=== PATIENT | female | born 1985 | race Caucasian/White ===

== ENCOUNTER → 2020-05-30 09:56 | Outpatient (BNVA) | payer MEDICAID, SELFPAY | PROVIDERS: PCP Family Medicine; Referring Provider Family Medicine; Visit Provider Nurse Practitioner | DX: I99.8 Other disorder of circulatory system (principal); R56.9 Unspecified convulsions; R29.2 Abnormal reflex; R00.2 Palpitations; F44.9 Dissociative and conversion disorder, unspecified; M54.2 Cervicalgia; R51.9 Headache, unspecified; Z13.29 Encounter for screening for other suspected endocrine disorder; Z87.891 Personal history of nicotine dependence | CPT/HCPCS: 99205 ==

== ENCOUNTER → 2020-06-08 09:58 | Outpatient (BNVA) | payer MEDICAID, SELFPAY | PROVIDERS: PCP Family Medicine; Referring Provider Nurse Practitioner; Visit Provider Specialist | DX: R56.9 Unspecified convulsions (principal); F44.9 Dissociative and conversion disorder, unspecified; Z87.891 Personal history of nicotine dependence | CPT/HCPCS: 95816 ==

== ENCOUNTER 2020-06-08 12:01 | Outpatient (CLI) | payer MEDICAID, SELFPAY ==
[2020-06-08 12:52] LABS: Estmated Average Glucose 103; Hemoglobin A1C 5.2 % (4.0-6.0)
[2020-06-08 13:02] LABS: Chol HDL Ratio 5.16 mg/dL (0.0-4.40); Cholesterol 191 mg/dL (0-200); HDL Cholesterol 37 mg/dL (60-100); LDL Cholesterol Calculated 140 mg/dL (50-129); LDL HDL Ratio 3.78 RATIO (0.00-3.22); Triglycerides 69 mg/dL (0-150)
== END 2020-06-08 12:02 | disposition home or self-care (01) ==
LOC: LAB 12:06
PROVIDERS: PCP Family Medicine; Visit Provider Nurse Practitioner
DX: I99.8 Other disorder of circulatory system (principal); Z13.29 Encounter for screening for other suspected endocrine disorder
CPT/HCPCS: 36415; 80061; 83036

== ENCOUNTER 2020-06-10 09:42 | Outpatient (CLI) | payer MEDICAID, SELFPAY ==
--- NOTE | 2020-06-10 09:30 | MR_ITS ---
WS: [id number] MRI CERVICAL SPINE NONCONTRAST TECHNIQUE: Sagittal T1, T2 and STIR imaging. Axial T2, gradient, and fiesta imaging. CLINICAL INFORMATION: M54.2 - Cervicalgia COMPARISON: None. FINDINGS: Straightening of the normal cervical lordosis. Cord signal is normal. No high-grade central canal cathie nosis. Small broad-based central protrusion C5-C6. C2-C3: Normal. C3-C4: Mild left facet arthropathy. Mild left bony foraminal narrowing. C4-C5: Mild facet arthropathy. Mild bilateral bony foraminal narrowing. Spinal canal is patent. C5-C6: Small broad-based central disc protrusion with tiny annular fissure. Mild central canal stenos is. Mild left greater than right bony foraminal narrowing. Mild to moderate facet arthropathy. C6-C7: Normal. C7-T1: Normal. Visualized brain stem structures: Normal. Prevertebral soft tissues: Normal. MR/MR cervical spin wo con* [id number] IMPRESSION: 1. Straightening of the normal cervical lordosis. Cord signal is normal. 2. Small broad-based central protrusion C5-C6 with mild central canal stenosis . Mild bilateral bony foraminal narrowing at this level with mild to moderate f acet arthropathy. 3. Otherwise mild bony foraminal narrowing described above.
== END 2020-06-10 09:43 | disposition home or self-care (01) ==
LOC: RADSHAW 09:45
PROVIDERS: PCP Family Medicine; Visit Provider Nurse Practitioner
DX: M50.222 Other cervical disc displacement at C5-C6 level (principal); M48.02 Spinal stenosis, cervical region
CPT/HCPCS: 72141

== ENCOUNTER 2020-06-30 12:42 | Outpatient (CLI) | payer MEDICAID, SELFPAY ==
--- NOTE | 2020-06-30 12:45 | USCV_ITS ---
Mayi Simon Age: 35 Gender: F : 1985 Exam Date: 06/30/2020 13:06 Ordering Phys: Juma SullivanP MSN AGACNP-BC Technologist: Kim Barrientos Exam Location: [facility] [place] Indication: PALPITATIONS Risk Factors: Previous Vascular Surgery: Right Brachial BP: / Left Brachial BP: / Right Left Velocity (cm/s) Spectral Plaque Velocity (cm/s) Spectral Plaque Syst/Diast Broadening Syst/Diast Broadening 82.00/ 20.70 Prox CCA 94.70 / 31.60 99.50/ 24.90 Mid CCA 97.30 / 23.70 75.10/ 23.80 Distal CCA 79.90 / 29.40 65.00/ 22.90 Prox ICA 71.00 / 0.00 90.70/ 38.50 Mid ICA 84.20 / 30.30 79.70/ 36.60 Distal ICA 80.40 / 35.00 71.50 ECA 90.70 0.91 ICA/CCA 0.87 Antegrade Vertebral Antegrade 45.20/ 13.20 cm/s 52.00/ 17.00 cm/s Tri Subclavian Tri 93.30 101.2 0 FINDINGS No significant plaques or unstable lesions. Normal Doppler flow velocities Antegrade flow in the vertebral arteries bilaterally CONCLUSIONS No significant plaques or unstable lesions in the extracranial vessels mentioned above No significant stenosis based on flow velocity measurements Dr Miki Anne MD [facility] (Electronically Signed) Final Date: 01 July 2020 09:12 S
== END 2020-06-30 12:43 | disposition home or self-care (01) ==
LOC: US 12:44
PROVIDERS: PCP Family Medicine; Visit Provider Nurse Practitioner
DX: R00.2 Palpitations (principal)
CPT/HCPCS: 93880

== ENCOUNTER → 2020-07-11 11:37 | Outpatient (BNVA) | payer MEDICAID, SELFPAY | PROVIDERS: PCP Family Medicine; Visit Provider Specialist | DX: F44.5 Conversion disorder with seizures or convulsions (principal); Z87.891 Personal history of nicotine dependence | CPT/HCPCS: 99215 ==

== ENCOUNTER → 2020-08-22 08:02 | Outpatient (BNVA) | payer MEDICAID, SELFPAY | PROVIDERS: PCP Family Medicine; Visit Provider Specialist | DX: F44.5 Conversion disorder with seizures or convulsions (principal); Z87.891 Personal history of nicotine dependence | CPT/HCPCS: 95816; 96374 ==

== ENCOUNTER → 2020-10-12 14:00 | Outpatient (BNVA) | payer MEDICAID, SELFPAY | PROVIDERS: PCP Family Medicine; Visit Provider Specialist | DX: F44.5 Conversion disorder with seizures or convulsions (principal); G43.711 Chronic migraine without aura, intractable, with status migrainosus; Z71.89 Other specified counseling | CPT/HCPCS: 99215 ==

== ENCOUNTER → 2021-02-22 07:51 | Outpatient (BNVA) | payer MEDICAID, SELFPAY | PROVIDERS: PCP Family Medicine; Visit Provider Specialist | DX: F44.5 Conversion disorder with seizures or convulsions (principal); G43.711 Chronic migraine without aura, intractable, with status migrainosus; Z71.85 Encounter for immunization safety counseling | CPT/HCPCS: 99213; 99214 ==

== ENCOUNTER → 2021-07-04 09:02 | Outpatient (BNVA) | payer MEDICAID, SELFPAY | PROVIDERS: PCP Family Medicine; Visit Provider Specialist | DX: G43.711 Chronic migraine without aura, intractable, with status migrainosus (principal); F44.5 Conversion disorder with seizures or convulsions; F41.8 Other specified anxiety disorders; Z86.16 Personal history of COVID-19 | CPT/HCPCS: 99214; 99215 ==